=== PATIENT | male | born 2000 | race Caucasian/White ===

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

== ENCOUNTER 2023-08-13 17:08 | Emergency (ER) | payer OTHER ==
[2023-08-13] MEDS ORDERED: Lidocaine 1% (PF) 30 ML VIAL ONE (17:49)
[2023-08-13] MEDS ORDERED: Lidocaine 4% Cream 5 GM TUBE w/ Tegaderm ONE (17:50)
[2023-08-13] MEDS ORDERED: Bacitracin 1 PK ONE (19:29)
[2023-08-13] MEDS ORDERED: Ondansetron ODT 4 MG TAB ONE (19:29)
[2023-08-13] MEDS ORDERED: HYDROcodone/Acetaminophen 10/325 mg Tablet ONE (20:04)
[2023-08-13] MEDS ORDERED: Cephalexin 250 MG CAP ONE (20:05)
[2023-08-13] MEDS ORDERED: Doxycycline 100 MG CAP ONE (20:05)
== END 2023-08-13 20:14 | disposition home or self-care (01) ==
LOC: NAV ERS 17:08
DX: S62.521B Displaced fracture of distal phalanx of right thumb, initial encounter for open fracture (principal); X58.XXXA Exposure to other specified factors, initial encounter
CPT/HCPCS: 29125; J2001; Q0162